=== PATIENT | female | born 1985 | race African-American/Black ===

== ENCOUNTER 2025-10-06 00:50 | Emergency (ER) | payer SELFPAY ==
[~2025-10-06] VITALS: Ht 167.6 cm; Wt 83.0 kg
[2025-10-06 00:56] VITALS: BP 157/105; PULSE 85; RESP 16; TEMP 36.7; O2SAT 100
== END 2025-10-06 02:20 | disposition left against medical advice (07) ==
LOC: ER 00:50
DX: M79.606 Pain in leg, unspecified (principal); Z53.21 Procedure and treatment not carried out due to patient leaving prior to being seen by health care provider
CPT/HCPCS: 99281